=== PATIENT | female | born 1995 | race Caucasian/White ===

== ENCOUNTER 2022-11-24 20:48 | Emergency (ER) | payer OTHER ==
[2022-11-24 20:53] VITALS: BMI 27.4
[2022-11-24] MEDS ORDERED: FLUORESCEIN NA 1 EA STRIP OS ONE (22:01)
[2022-11-24] MEDS ORDERED: TETRACAINE 0.5% HCL 0.6ML DROPPER.BOTTLE OS ONE (22:01)
[2022-11-24] MEDS ORDERED: TETRACAINE 0.5% OPHTH SOLN 2 ML BOTTLE ONE (22:04)
[2022-11-24] MEDS ORDERED: FLUORESCEIN NA 1 EA STRIP ONE (22:04)
[2022-11-25 00:39] VITALS: BP 109/50; PULSE 56; RESP 14; TEMP 98.1
== END 2022-11-25 01:09 | disposition home or self-care (01) ==
LOC: JER 20:48 → JERFT 20:48
DX: H57.12 Ocular pain, left eye (principal); H11.32 Conjunctival hemorrhage, left eye; S00.12XA Contusion of left eyelid and periocular area, initial encounter; Y04.0XXA Assault by unarmed brawl or fight, initial encounter; Y93.9 Activity, unspecified; Y92.009 Unspecified place in unspecified non-institutional (private) residence as the place of occurrence of the external cause
CPT/HCPCS: 70486-TC; 84703; 99284-25